=== PATIENT | male | born 1960 | race Caucasian/White ===

== ENCOUNTER 2017-04-25 06:45 | Emergency (ER) | payer OTHER ==
[~2017-04-25] VITALS: Ht 188 cm; Wt 90.7 kg
[~2017-04-25 06:45] MED LIST: LEVSIN0.125 M1 PO; VICODIN 5-3001 EACH PO
--- NOTE | 2017-04-25 07:18 | ED CARDIAC/CP/PALPITATIONS ---
History of Present Illness General Chief Complaint: Chest Pain Stated Complaint: PT C/O CHEST PAIN . PT HAS CARDIAC HX Source: patient Exam Limitations: no limitations Vital Signs & Intake/Output Vital Signs & Intake/Output ED Intake and Output 04/26 0000 04/25 1200 Intake Total 1000 Output Total Balance 1000 Intake, IV 1000 Patient 200 lb Weight Allergies Coded Allergies: NO KNOWN ALLERGIES (01/22/16) NKA PER ANTIBIOTIC ORDER SHEET OF 04/06/11 - [facility] Triage Note: PT TO TRIAGE C/O 8/10 L SIDED CHEST PAIN THAT BEGAN LAST NIGHT. PT WENT TO BED BUT WHEN HE WOKE UP THIS MORNING TO GO TO WORK HE HAD THE SAME PAIN BUT RADIATING TO LIPS AND BETWEEN SHOULDER BLADES PER PT. DENIES SOB BUT STATES HAS HAD "FLU LIKE SYMPTOMS FOR A FEW WEEKS." HX CARDIAC ABLAISION IN 2016. BROUGHT DIRECTLY TO ROOM 12 FOR EKG AND EVAL. 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 Triage Nurses Notes Reviewed? yes Onset: Abrupt Duration: hour(s): (12) Timing: single episode today Quality/Severity: tightness Location: back, L sided chest Radiation: no radiation Activities at Onset: cough Prior Chest Pain/Card Workup: no prior chest pain Modifying Factors: Improves With: coughing. Nitro Today/Relief: no nitro taken today Aspirin Today: no aspirin today Associated Symptoms: back pain HPI: Patient is a 56-year-old male with a past medical history significant for SVT status post ablation ablation in 2014, who presents with chest discomfort described as pressure since last night. Patient reports that for the past 2 weeks he has had URI-like symptoms including she productive cough with pain to yellow sputum, shortness of breath, wheezing, nausea fatigue, headache, fever MAXIMUM TEMPERATURE 102.8, resolved with aspirin. He endorses sick contacts both at work and at home. He states that last night after coughing he began experiencing severe 10/10 left-sided chest discomfort described as a pressure- like sensation associated back described as an aching pain. He was able to sleep but awoke with pain unchanged. He has never experienced pain like this in the past. He has continued to experience nausea and shortness of breath however these are unchanged over the last several weeks. He has not had no associated loss of consciousness, diaphoresis, radiating pain, vomiting. He denies any recent travel or immobility, and also denies any lower extremity swelling or pain. (Austin Schuster MD) Reconcile Medications Ketorolac Tromethamine 10 MG TABLET 1 TAB PO Q6P PRN chest pain (June LOZADA,Elio Hamilton) Past History Travel History Traveled to [place] past 21 day No Medical History Any Pertinent Medical History? see below for history Neurological: NONE EENT: NONE Cardiovascular: SVT CARDIAC ABLATION Respiratory: NONE Gastrointestinal: NONE Hepatic: NONE Renal: NONE Musculoskeletal: disk herniation Psychiatric: NONE Endocrine: NONE Blood Disorders: NONE Cancer(s): NONE COUPLER/Reproductive: NONE Surgical History Surgical History: non-contributory Psychosocial History What is your primary language Urdu Tobacco Use: Quit <30 days ago (25 pack year history) ETOH Use: occasional use Illicit Drug Use: denies illicit drug use Family History Family History, If Any: MOTHER Diabetes mellitus (DM) FH: HTN (hypertension) FATHER FH: prostate cancer Hx Contributory? No (Austin Schuster MD) Review of Systems Review of Systems Constitutional: Reports: fever, malaise. Denies: chills, diaphoresis, weakness. EENTM: Reports: no symptoms. Respiratory: Reports: see HPI, cough, short of breath, wheezing. Cardiovascular: Reports: chest pain. Denies: orthopena, palpitations, peripheral edema, syncope. GI: Reports: nausea. Denies: abdominal pain, diarrhea, changes in stool, vomiting. Genitourinary: Reports: no symptoms. Musculoskeletal: Reports: back pain. (Austin Schuster MD) Physical Exam Physical Exam General Appearance: well developed/nourished, no apparent distress, alert, awake Head: atraumatic Eyes: Bilateral: normal appearance, PERRL, EOMI, pale conjunctivae. 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 Yes CVA/TIA Diagnosis No Sepsis Present: No Sepsis Focused Exam Completed? No (Mariely LOZADA,[place]) Progress Differential Diagnosis: aortic dissection, musculoskeletal pain, pneumonia, pneumothorax Diagnostic Imaging: Viewed by Me: Radiology Read. CXR Impression: no acute abnormality Initial ED EKG: normal axis, normal intervals, normal p-waves, normal QRS complex, no ST T wave changes, sinus arrythmia Prior EKG: unchanged (Austin Schuster MD) Plan of Care: Orders Procedure Date/time Status TROPONIN LEVEL 04/25 1100 Complete EKG 04/25 1100 Active Code Status 04/25 1002 Active TROPONIN LEVEL 04/25 0722 Complete CBC WITHOUT DIFFERENTIAL 04/25 0722 Complete BASIC METABOLIC PANEL 04/25 0722 Complete EKG 04/25 0647 Active Current Medications Sig/Abiel Start time Last Medication Dose Stop Time Status Admin Sodium Chloride 1,000 ML Q6H 04/25 0800 AC 04/25 (Normal Saline 0.9%) 0807 Laboratory Tests 04/25/17 1101: Troponin I < 0.01 04/25/17 0729: Anion Gap 14, Estimated GFR > 60, BUN/Creatinine Ratio 12.5, Glucose 101 H, Calcium 9.7, Troponin I < 0.01, CBC w Diff NO MAN DIFF REQ, RBC 4.43 L, MCV 86.5, MCH 29.1, RDW 15.0 H, MPV 7.0 L, Gran % 74.0, Lymphocytes % 18.4 L, Monocytes % 6.1, Eosinophils % 1.0, Basophils % 0.5, Absolute Granulocytes 6.7 H, Absolute Lymphocytes 1.7, Absolute Monocytes 0.6, Absolute Eosinophils 0.1, Absolute Basophils 0, PUBS MCHC 33.6 Patient is being evaluated for new onset chest pressure with associated back pain and a 2 week history of URI symptoms. -Will rule out ACS with serial troponins and EKG, negative troponins x [address] changes on EKGs -with history of productive cough and fevers, CXR was done to assess for pneumonia, and possible pneumothorax given SOB and CP. CXR was negative for acute pathology, no leukocytosis and afebrile. -Pain controlled with toradol IV x 1, and SOB improved - IV fluid rehydration - patient to be discharged home with a short course of toradol and instructions to follow up with his PCP and certified real estate appraiser. (Mariely LOZADA,[place]) (June LOZADA,Elio Hamilton) Departure Departure Condition: Stable Clinical Impression Primary Impression: Musculoskeletal chest pain Secondary Impressions: URI (upper respiratory infection) Qualifiers: URI type: unspecified viral URI Qualified Codes: J06.9 - Acute upper respiratory infection, unspecified; B97.89 - Other viral agents as the cause of diseases classified elsewhere Departure Forms: Customer Survey General Discharge Information (Mariely LOZADA,[place]) Departure Disposition: HOME OR SELF CARE Referrals: Nash LOZADA,Derrick Jennings MD,Anastasia Hamilton (PCP/Family) Additional Instructions: Rest, no exertion or heavy lifting. Contact her primary care physician and arrange for follow-up appointment this week. Contact Dr. Derrick Ness's group (certified real estate appraiser) today and arrange for follow-up appointment as soon as possible for reevaluation of your chest pain syndrome. Ketorolac as prescribed. Return if any concerns or sudden worsening. Please note that there might be incidental findings in your evaluation that are unrelated to the current emergency department visit. Please notify your primary care doctor about this emergency department visit in order to obtain and review all of the testing performed so that these incidental findings can be monitored as needed. If you had an x-ray performed, please understand that some fractures may not be seen on the initial set of x-rays. If your symptoms persist you might need a repeat set of x-rays to check for such a fracture. If you had a laceration evaluated, please understand that foreign bodies such as glass or wood may not be visible to the naked eye or on plain x-rays. If the wound becomes red, swollen, increasingly more painful or if there is any drainage from the wound, please have it reevaluated by a physician for the possibility of a retained foreign body. If you're unable to follow up as outlined in the discharge instructions please return to the emergency department. Thank you for choosing the [facility] Emergency Department for your care. It was a pleasure to serve you today. Elio Watkins M.D. [facility] Prescriptions: Current Visit Scripts Ketorolac Tromethamine 1 TAB PO Q6P PRN chest pain #16 TAB Resident Co-Sign Statement Statement: ED Attending supervision documentation- [x] I saw and evaluated the patient. I have also reviewed all the pertinent lab results and diagnostic results. I agree with the findings and the plan of care as documented in the Resident's documentation. [] I have reviewed the ED Record and agree with the Resident's documentation. [] Additions or exceptions (if any) to the Resident's note and plan are summarized below: [] (June LOZADA,Elio Hamilton) Critical Care Note Critical Care Note Critical Care Time: non-applicable (Mariely LOZADA,[place]) ED Attending Observation Initial Observation Note: I have seen and personally examined AMANDA JUNG on 04/25/17 at 0818. I agree with the current emergency department documentation. The disposition (admission or discharge) is uncertain at this time, he needs a period of observation for the following reason(s): The ED Nurse caring for this patient has been personally informed as to what the patient is being observed for. (Mariely LOZADA,[place])
[2017-04-25 07:35] LABS: ABSOLUTE BASOPHIL COUNT 0 /CUMM (0.0-0.2); ABSOLUTE EOSINOPHIL COUNT 0.1 /CUMM (0.0-0.7); ABSOLUTE GRANULOCYTE CT 6.7 /CUMM (1.4-6.5); ABSOLUTE LYMPH COUNT 1.7 /CUMM (1.2-3.4); ABSOLUTE MONOCYTE COUNT 0.6 /CUMM (0.10-0.60); BASOPHIL % 0.5 % (0.0-2.0); HEMATOCRIT 38.3 % (42-52); MEAN CORPUSCULAR HGB 29.1 PG (27.0-31.0); MEAN CORPUSCULAR HGB CONC 33.6 G/DL (33.0-37.0); MEAN CORPUSCULAR VOLUME 86.5 FL (80.0-94.0); PLATELET COUNT 304 /CUMM (130-400); RED BLOOD CELL CT 4.43 /CUMM (4.70-6.10)
--- NOTE | 2017-04-25 08:32 | RADIOLOGY REPORT ---
EXAMINATION: XR CHEST, 2 VIEWS CLINICAL INFORMATION: Productive cough, fever. Rule out pneumothorax, pneumonia COMPARISON: 01/29/2016 TECHNIQUE: PA and lateral views of the chest were obtained. FINDINGS: Lungs are hyperexpanded. Foci of pleural parenchymal scarring are present at the lung apices. No consolidation, pneumothorax, or pleural effusion. Pulmonary vasculature is normal. Cardiac and mediastinal contours are normal. Degenerative disc disease is present in the mildly scoliotic thoracic spine. Mild degenerative changes are present in the left glenohumeral joint. IMPRESSION: No acute cardiopulmonary findings.
[2017-04-25 11:53] VITALS: BP 152/89
[2017-04-25] MEDS ORDERED: KETOROLAC TROME10 M1 PO (12:06)
== END 2017-04-25 12:19 ==
LOC: ERH 06:45
PROVIDERS: Dermatology
DX: R07.89 Other chest pain (principal); J06.9 Acute upper respiratory infection, unspecified; Z87.891 Personal history of nicotine dependence
CPT/HCPCS: 71046; 93005; 93010; 96374; J1885